=== PATIENT | female | born 1975 | race Caucasian/White ===

== ENCOUNTER → 2017-10-03 10:48 | Outpatient (CLI) | payer MEDICAID, SELFPAY ==
--- NOTE | 2017-10-03 10:50 | MM_ITS ---
MM Dig screening mamm BI w/CAD CAD Screening ORDERING PHYSICIAN : CYDNEY Mcknight PATIENT AGE: 41 years GENDER: Female INDICATION: No hormones no new complaints noncontributory family history COMPARISON: BASELINE mammogram no previous studies.: TECHNIQUE: Standard CC and MLO images were obtained. Additional axillary cc views both breast R2 CAD reviewed. FINDINGS: [id number] breast density RIGHT BREAST:Area of density labeled A, at the deep right breast Most evident on MLO view dissipates slightly but persists the cc view. Recommend patient return for CC and MLO and 90 views of this area. Ultrasound will likely be of benefit as well but LEFT BREAST: 7 mm ovoid low-density density area deep breast labeled X. At posterior margin today's MLO and cc images deep central left breast. May be a intramammary node but has a tail. & Also there are but no prior films to confirm stability.. Thus would suggest a 90 degrees spot view, and cc spot view to confirm. It will likely persistent thus ultrasound suggested here as well IMPRESSION: ====== Small focal areas of density at the both deep right and left breast on today's baseline study. Lower suspicion indeterminate densities, but would benefit from additional spot views both breast , as well as bilateral breast ultrasound to further evaluate.,. Particularly Since No previous studies for comparison BI-RADS Category: 0 Need Additional Imaging Evaluaiton. RECOMMENDED FOLLOW-UP: IMM - IMMEDIATE FOLLOW-UP RECOMMENDED Spot views and ultrasound both breast (A letter has been sent to the patient regarding results of the study.)
== END ==
PROVIDERS: PCP Physician Assistant; Visit Provider Physician Assistant
DX: Z12.31 Encounter for screening mammogram for malignant neoplasm of breast (principal)
CPT/HCPCS: 77067

== ENCOUNTER → 2017-10-25 12:46 | Outpatient (CLI) | payer MEDICAID, SELFPAY ==
--- NOTE | 2017-10-25 12:48 | MM_ITS ---
MM Dig mamm BI DX w/CAD, US breast RT complete, US breast LT complete COMPARISON: 10/03/2017 INDICATION: Follow-up abnormal mammogram ORDERING PHYSICIAN: CYDNEY Mcknight PATIENT AGE: 41 years TECHNIQUE: Problem-solving views are performed of both breasts along with bilateral breast ultrasound FINDINGS: Right mammogram: 4 mm nodular opacity in the lateral aspect of the right breast. Areas of asymmetry in the outer aspect of right breast and inferior aspect the right breast appears to compress out. No malignant appearing mass or malignant appearing microcalcification. Right breast ultrasound: 4 mm hypoechoic nodule at 9:00. 7 mm hypoechoic nodule at 10:00 oval in nature with through transmission of sound. There is ductal ectasia. Left breast: There is a persistent 6 mm nodular opacity in the deep outer and inferior aspect of the left breast. This is fairly well-circumscribed and difficult to image due to its deep location. Possibly related to a small lymph node. The asymmetry in the central left breast appear to compress out. Left breast ultrasound: At 1:00 there is a 5 x 2 mm area of isoechogenicity. There is ductal ectasia small nodes in the axilla. Second look ultrasound was performed showing a complex cystic area at 12:00 in the retroareolar region measuring 10 x 6 mm containing some septations. This is not readily apparent on mammography. IMPRESSION: Probably benign findings. No convincing evidence of malignancy in either breast. 6 mm nodular opacity in the outer left breast not readily visible by ultrasound but has probably benign mammographic appearance. Complex 1 cm cystic lesion in the retroareolar region on the left probably due to complex cyst. 7 and 4 mm hypoechoic nodule right breast probably related to cyst. BI-RADS Category: 3 Benign Finding Short Term Follow-up RECOMMENDED FOLLOW-UP: 6M - 6 MONTH FOLLOW-UP Bilateral 6 month mammographic and sonographic follow-up to confirm stability. (A letter has been sent to the patient regarding results of the study.)
== END ==
PROVIDERS: PCP Physician Assistant; Visit Provider Physician Assistant
DX: R92.8 Other abnormal and inconclusive findings on diagnostic imaging of breast (principal)
CPT/HCPCS: 76641; 77066

== ENCOUNTER → 2018-05-21 12:47 | Outpatient (CLI) | payer MEDICAID, SELFPAY ==
--- NOTE | 2018-05-21 12:49 | US_ITS ---
MM Dig mamm BI DX w/CAD, US breast RT complete US breast LT complete INDICATION: Follow-up abnormal mammogram ORDERING PHYSICIAN: CYDNEY Mcknight PATIENT AGE: 42 years COMPARISON: 10/03/2017, 10/25/2017 TECHNIQUE: Standard images performed along with spot compression views and bilateral breast ultrasound FINDINGS: Right breast: Scattered areas of asymmetric density are once again noted as before. No malignant appearing mass or malignant appearing microcalcifications evident. Asymmetric density in the inferior aspect of the right breast appear to compress out as before. Asymmetric density noted in the medial aspect of the right breast and lateral aspect of the right breast also appears to compress out. Right breast ultrasound: Hyperechoic area at 12:00 and may be due to a small lipoma 4 mm cyst at 10:00, 5 mm complex cyst at 10:00, 3 mm hypoechoic nodule at 9:00, ductal ectasia in the retroareolar region. Small nodes in the axilla. Left breast: Asymmetric density in the deep aspect of the left breast inferiorly once again noted unchanged to somewhat less apparent. This area appears to compress out on spot compression view on the cc view and MLO. Left breast ultrasound: There is a complex cyst at 1:00 at 8 x 4 mm unchanged. 4 mm cyst at 9:00, there is small cluster of cysts are present at 11:00 not previously recognized. Ductal ectasia in the retroareolar region. IMPRESSION: Probably benign findings, no evidence of malignancy bilateral complex cysts with a new complex cyst at 11:00 region of the left breast. Recommend continued 6 month follow-up to confirm one-year stability BI-RADS Category: 3 Probably Benign Finding Short Term Follow-up RECOMMENDED FOLLOW-UP: 6M - 6 MONTH FOLLOW-UP (A letter has been sent to the patient regarding results of the study.)
== END ==
PROVIDERS: PCP Physician Assistant; Visit Provider Physician Assistant
DX: R92.8 Other abnormal and inconclusive findings on diagnostic imaging of breast (principal)
CPT/HCPCS: 76641; 77066

== ENCOUNTER 2018-12-22 06:51 | Observation (INO) ==
[2018-12-22 07:04] LABS: Basophils % 0.4 % (0.1-2.0); Eosinophils # 0.4 K/mm3 (0.0-0.4); Eosinophils % 4.2 % (0.1-12.0); Hematocrit 39.7 % (37.0-47.0); Hemoglobin 13.3 g/dL (12.2-16.2); Lymphocytes # 2.8 K/mm3 (0.7-4.5); Lymphocytes % 33.5 % (10-50); Mean Corpuscular HGB Conc 33.5 g/dL (31.8-35.4); Mean Corpuscular Hemoglobin 29.9 pg (27.0-31.2); Monocytes # 0.7 K/mm3 (0.1-1.0); Monocytes % 8.4 % (1.7-9.3); Neutrophils # 4.5 K/mm3 (1.8-7.8); Neutrophils % 53.5 % (37.0-80.0); Platelet Count 318 K/mm3 (142-424); Red Blood Count 4.46 M/mm3 (4.20-5.40); Red Cell Distribution Width 13.7 % (11.5-17.5); White Blood Count 8.5 K/mm3 (4.8-10.8)
[2018-12-22 07:21] LABS: Microscopic, Urine URINE MICROSCOPIC (MICROSCOPIC)
[2018-12-22 07:22] LABS: Appearance,Urine CLEAR (Clear); Blood, Urine 1+ (Negative); Color,Urine YELLOW (Yellow); Glucose,Urine (UA) Negative (Negative); Ketones,Urine TRACE (Negative); Leukocyte Esterase,Urine Negative (Negative); PH,Urine 5.5 (5.0-8.5); Protein,Urine TRACE (Negative); Specific Gravity, Urine >= 1.030 (1.005-1.030); Urobilinogen,Urine 0.2 EU/dl (0.2)
--- NOTE | 2018-12-22 07:23 | Emergency Department Note ---
ED Disposition Clinical Impression: Chest pain Qualifiers: Chest pain type: precordial pain Qualified Code(s): R07.2 - Precordial pain Disposition: Admitted as Observation Condition on Discharge: Good Referrals: Provider,Referral, [Referring] - - Critical Care Critical Care Time: No Attestation: On , the high probability of a clinically significant, sudden or life threatening deterioration of the following system(s) required my full and direct attention, intervention and personal management. The time I documented below is in addition to time spent performing reported procedures but includes the following listed in this critical care notation. Medical Decision Making - Medical Records Medical records reviewed: Yes: I reviewed the patient's medical records. - [place] Inquiry Pt receiving controlled substance: No Vital Signs: 12/22/18 07:04 12/22/18 07:28 12/22/18 07:39 Temperature 98.3 F Temperature Source Oral Pulse Rate [Right] 76 64 58 L Respiratory Rate 16 Blood Pressure [Right Arm] 118/82 126/64 93/66 L Blood Pressure Mean [Right Arm] 94 84 75 Blood Pressure Source [Right Arm] Automatic Cuff Automatic Cuff Automatic Cuff Blood Pressure Position [Right Arm] Sitting Sitting Sitting 02 Sat by Pulse Oximetry 978 H 98 97 Oxygen Delivery Method Room Air Room Air Room Air - Lab Data Lab results reviewed: Yes: I reviewed the patient's lab results. Lab Results 12/22/18 06:50: WBC 8.5, RBC 4.46, Hgb 13.3, Hct 39.7, MCV 89.0, MCH 29.9, MCHC 33.5, RDW 13.7, Plt Count 318, MPV 8.0, Neut % (Auto) 53.5, Lymph % (Auto) 33.5, [place] % (Auto) 8.4, Eos % (Auto) 4.2, Baso % (Auto) 0.4, Neut # (Auto) 4.5, Lymph # (Auto) 2.8, [place] # (Auto) 0.7, Eos # (Auto) 0.4, Baso # (Auto) 0.0 12/22/18 06:50: Sodium 143, Potassium 3.7, Chloride 107, Carbon Dioxide 25, Anion Gap 14.7, BUN 15, Creatinine 0.98, Estimated Creat Clear 69, Estimated GFR 62, Est GFR ( Amer) 75, Glucose 107 H, Calcium 9.2, Troponin I < 0.02 12/22/18 07:10: Urine Color Yellow, Urine Appearance Clear, Urine pH 5.5, Ur Specific [place] >= 1.030, Urine Protein Trace, Urine Glucose (UA) Negative, Urine Ketones Trace, Urine Blood 1+, Urine Nitrate Negative, Urine Bilirubin 1+ A, Urine Urobilinogen 0.2, Ur Leukocyte Esterase Negative Result diagrams: 12/22/18 06:50 12/22/18 06:50 Orders (Tests/Meds): ED MEDICATIONS Generic Name Dose Route Start Last Admin Trade Name Freq PRN Reason Stop Dose Admin Sodium Chloride 1,000 mls @ 999 mls/hr 12/22/18 08:00 12/22/18 07:58 Sod Chlor 0.9% 1000ml Bag IV 12/22/18 09:00 999 mls/hr .[id number] MANJINDER Administration Discontinued Medications Generic Name Dose Route Start Last Admin Trade Name Freq PRN Reason Stop Dose Admin Aspirin 324 mg 12/22/18 06:55 12/22/18 06:58 Aspirin 81mg Chewable Tablet PO 12/22/18 06:56 324 mg ONCE ONE Administration Morphine Sulfate 2 mg 12/22/18 07:42 12/22/18 07:43 Morphine 2mg/Ml Syringe IV 12/22/18 07:43 2 mg ONCE ONE Administration Nitroglycerin 0.4 mg 12/22/18 07:12 12/22/18 07:13 Nitrostat 0.4mg Sl Tablet SL 12/22/18 07:13 0.4 mg ONCE ONE Administration Nitroglycerin 1 gm 12/22/18 07:20 12/22/18 07:29 Nitroglycerin 1 Inch Oint Udp TD 12/22/18 07:21 1 gm ONCE ONE Administration Ondansetron HCl 4 mg 12/22/18 07:56 12/22/18 07:58 Zofran 4mg/2ml Vial IV 12/22/18 07:57 4 mg ONCE ONE Administration ORDERS Category Date Time Status Chest XR 2 view (NOT portable) [XR chest 2V] Stat Exams 12/22/18 06:54 Taken Lipid Panel Stat Lab 12/22/18 07:10 Received Urinalysis and Microscopic Stat Lab 12/22/18 07:10 Results Urine , HCG Qual. Stat Lab 12/22/18 07:10 Received - Radiology Data #1 Image(s): Chest Image Reviewed: Yes I reviewed the patient's radiology image Preliminary Findings: Normal/NAD - ECG Data Tracing #1 Normal Sinus Rhythm: Yes Ischemic changes: non-specific ST-T wave changes Chest Pain HPI - General Chief Complaint: Chest Pain Stated Complaint: chest pain Time Seen by Provider: 12/22/18 07:10 Mode of Arrival: Ambulatory Source of Information: Patient, Medical Record Limitations: No Limitations Description of Symptoms (Recalled from ER Triage Doc. by RN): Pt states she woke up with chest pain radiating to left arm - History of Present Illness HPI narrative: pt with episode of chest pain which awoke pt this am with rad to lt upper ext - described as sharp MD complaint: chest pain indicative of cardiac Onset (ago): hour(s) Duration: constant Activity at onset: awoke with symptoms Pain location: left chest Severity: moderate Quality: sharp Pain radiation: LUE Risk Factors for CAD: Family Hx of CAD Treatments prior to or on arrival for Cardiac Chest Pain: none - MIRA Score for Non-Stemi Age of Patient: 40-49 years old Heart Rate: 70-89 bpm Systolic Blood Pressure: 100-119 mmHg Serum Creatinine: 0.80-1.19 mg/dl CHF [place] Class: I-No CHF Other Risk Factors: None Non-Stemi Risk Score: 84 - Related Data On Oral Contraceptives: No Home Medications Medication Instructions Recorded Confirmed Fluoxetine HCl [Prozac] 40 mg PO DAILY 12/22/18 12/22/18 hydrOXYzine pamoate [Vistaril 25mg 25 mg PO BID 12/22/18 12/22/18 capsule] Allergies Allergy/AdvReac Type Severity Reaction Status Date / Time From CELEXA Allergy Unknown Uncoded 09/19/17 10:59 From Penicillin V Potassium Allergy Unknown Uncoded 09/19/17 10:59 Penicillin Allergy Unknown Uncoded 09/19/17 10:59 [facility] History - Hepatitis A Screen Drug use history?: No High risk sexual behaviors?: No History of sexually transmitted infection?: No Currently employed?: No Childcare worker?: No Do you have indoor plumbing?: Yes Do you have electricity?: Yes Attestation statement:: This patient has been screened for Hepatitis A risk factors. I have reviewed the patient's past medical history: Yes Medical History: Reports:: Anxiety, Depression Denies:: Diabetes Mellitus Type 1, Diabetes Mellitus Type 2 Other Surgeries: Yes: Amputation: No Fractures: No - Social History Smoking Status: Never smoker Alcohol Intake: never Substance Use Type: denies use Occupational Status: disabled - Psychiatric History Expresses thoughts of harming self/others: None Suicide Plan Description: No Plan Pschychiatric History:: Reports:: Anxiety, Depression Family Hx:: No significant family history ROS Obtained: Yes All systems reviewed & no additional complaints - Constitutional Constitutional: Denies fever(s) - Eyes Eyes: Denies change in vision - ENT Ears, Nose, Mouth, and Throat: Denies sore throat - Cardiovascular Cardiovascular: Reports chest pain - Respiratory Respiratory: No cough - Gastrointestinal Gastrointestingal: Denies: abdominal pain - Genitourinary Female Genitourinary: Denies hematuria - Musculoskeletal Musculoskeletal: Denies joint pain - Integumentary/Breasts Skin/Breast: Denies rash - Neurologic Neurologic: Denies seizure-like activity Physical Exam - General General appearance: alert - Head Head exam: normocephalic - Eye Eye exam: Present: PERRL, EOMI. Absent: scleral icterus - ENT ENT exam: Present: normal oropharynx - Neck Neck exam: Present: trachea midline - Respiratory Respiratory exam: Present: normal lung sounds bilaterally. Absent: respiratory distress - Cardiovascular Cardiovascular exam: Present: regular rate, systolic murmur. Absent: rubs, gallop - Abdominal Exam Abdominal exam: Present: soft - Extremities Exam Extremities exam: Absent: calf tenderness - Neurological Exam Neurological exam: Present: alert, oriented X3, CN II-XII intact - Psychiatric Psychiatric exam: Present: normal affect - Skin Skin exam: Absent: rash
[2018-12-22 07:25] LABS: Anion Gap 14.7 mEq/L (5-15); Blood Urea Nitrogen 15 mg/dL (7-18); Calcium 9.2 mg/dL (8.5-10.1); Carbon Dioxide 25 mmol/L (21.0-32.0); Chloride 107 mmol/L (98-107); Glucose 107 mg/dL (74-106); Potassium 3.7 mmoL/L (3.5-5.1); Sodium 143 mmol/L (136-145)
[2018-12-22 07:48] LABS: Bilirubin,Urine 1+ (Negative)
[2018-12-22 08:10] LABS: Bacteria,Urine 1+ /lpf
--- NOTE | 2018-12-22 09:21 | History & Physical Report ---
*Admission Date: 12/22/18 *Chief complaint: chest pain *History of present illness: 43 yr old female presents to ed with c/o of chest pain with pain radiating down left arm. Pt states she was awaken with a stabbing pain in the chest and pain down left arm. Pt states on arrival to ed pain was 10 she received morphine,asa and nitro and pain down to 7. Now pain 2 with a nitro patch on. Pt reports no smoking,or hx of cardiac issues. Pt admitted for cardiac work up and consult. [facility] History I have reviewed the patient's past medical history: Yes Medical History: Reports:: Anxiety, Depression Denies:: Diabetes Mellitus Type 1, Diabetes Mellitus Type 2 *Have you ever received a pneumonia vaccine?: No *Have you received a flu vaccine this season?: No Other Surgeries: Yes: Amputation: No Fractures: No - *Social History Smoking Status: Never smoker Alcohol Intake: never Substance Use Type: denies use *Occupational Status:: disabled *Travel in the last 8 weeks: None - Psychiatric History Expresses thoughts of harming self/others: None Suicide Plan Description: No Plan Pschychiatric History:: Reports:: Anxiety, Depression Family Hx:: No significant family history Review of Systems - Constitutional Denies fever(s), Denies weight gain - Eyes Denies change in vision - ENT Denies change in voice, Denies nose pain - *Cardiovascular Reports chest pain, Reports chest pain at rest, Reports radiating jaw, neck or arm pain - *Respiratory Denies cough - *Gastrointestinal Denies change in bowel habits - *Genitourinary Denies urinary incontinence - *Musculoskeletal Denies decreased muscle mass - Integumentary/Breasts Denies change in hair, Denies rash - *Neurologic Denies abnormal movements, Denies seizure-like activity - Psychiatric Denies lack of enjoyment - Endocrine Denies flushing - Hematologic/Lymphatic Denies enlarged lymph nodes - Allergic/Immunologic Denies tongue swelling Meds Home Medications Medication Instructions Recorded Confirmed Type Fluoxetine HCl [Prozac] 40 mg PO DAILY 12/22/18 12/22/18 History hydrOXYzine pamoate [Vistaril 25mg 25 mg PO BID 12/22/18 12/22/18 History capsule] Allergies Allergy/AdvReac Type Severity Reaction Status Date / Time From CELEXA Allergy Unknown Uncoded 09/19/17 10:59 From Penicillin V Potassium Allergy Unknown Uncoded 09/19/17 10:59 Penicillin Allergy Unknown Uncoded 09/19/17 10:59 Exam Vital signs and Labs for Last 24 Hours: Temp Pulse Resp BP Pulse Ox 98.2 F 94 H 17 104/68 L 96 12/22/18 09:00 12/22/18 09:00 12/22/18 09:00 12/22/18 09:00 12/22/18 09:00 Laboratory Results - last 24 hr 12/22/18 06:50: WBC 8.5, RBC 4.46, Hgb 13.3, Hct 39.7, MCV 89.0, MCH 29.9, MCHC 33.5, RDW 13.7, Plt Count 318, MPV 8.0, Neut % (Auto) 53.5, Lymph % (Auto) 33.5, [place] % (Auto) 8.4, Eos % (Auto) 4.2, Baso % (Auto) 0.4, Neut # (Auto) 4.5, Lymph # (Auto) 2.8, [place] # (Auto) 0.7, Eos # (Auto) 0.4, Baso # (Auto) 0.0 12/22/18 06:50: Sodium 143, Potassium 3.7, Chloride 107, Carbon Dioxide 25, Anion Gap 14.7, BUN 15, Creatinine 0.98, Estimated Creat Clear 69, Estimated GFR 62, Est GFR ( Amer) 75, Glucose 107 H, Calcium 9.2, Troponin I < 0.02 12/22/18 07:10: Urine Color Yellow, Urine Appearance Clear, Urine pH 5.5, Ur Specific [place] >= 1.030, Urine Protein Trace, Urine Glucose (UA) Negative, Urine Ketones Trace, Urine Blood 1+, Urine Nitrate Negative, Urine Bilirubin 1+ A, Urine Urobilinogen 0.2, Ur Leukocyte Esterase Negative, Urine WBC 5-10, Ur Squamous Epith Cells 10-20, Urine Bacteria 1+ 12/22/18 07:10: Urine HCG, Qual Negative 12/22/18 07:10: Triglycerides 127, Cholesterol 215 H, LDL Cholesterol 147 H, VLDL Cholesterol 25, HDL Cholesterol 43, Cholesterol/HDL Ratio 5.0 H I & O for Last 24 hours: Intake & Output 12/19/18 12/20/18 12/21/1825/19 11:59 11:59 11:59 11:59 Intake Total 1000 / 1000 Balance 1000 / 1000 Weight 130 lb - Constitutional no acute distress - *Routine HEENT Exam Head: Present: normocephalic Eye: Present: PERRL ENT: Present: mucous membranes moist - *Routine Neck Exam Present: supple. Absent: lymphadenopathy - *Routine Respiratory Exam Present: CTA bilaterally - *Routine Cardiovascular Exam Present: RRR - *Routine Abdominal Exam Present: soft, normoactive bowel sounds. Absent: tenderness - *Routine Extremities Exam Absent: cyanosis, clubbing, edema - *Routine Skin Exam Present: warm. Absent: rash - *Routine Neurological Exam Present: alert, oriented X3 - Routine Psychiatric Exam Present: normal affect Assessment and Plan - Assessment and plan all Dx Assessment and Plan for all problems:: ashley rounded earlier, all orders per ashley consult mc
--- NOTE | 2018-12-22 11:27 | Pharmacy Consult Notes ---
[facility] Pharmacy VTE Monitoring - Patient Demographics Admission date: 12/22/18 Report Date: 12/22/18 Time: 11:27 Allergies/Adverse Reactions: Patient Allergies pineapple Allergy (Verified 12/22/18 10:07) Swelling of Lip/Tongue/Throat From CELEXA Allergy (Unknown, Uncoded 09/19/17 10:59) From Penicillin V Potassium Allergy (Unknown, Uncoded 09/19/17 10:59) Penicillin Allergy (Unknown, Uncoded 09/19/17 10:59) Height: 1.57 m Weight: 58.967 kg Patient Problems: Current Active Problems (Updated 12/22/18 @ 08:02 by Damian Ogden MD) Chest pain (Acute) - VTE Risk Labs: VTE Related Lab Results Hgb 13.3 g/dL (12.2-16.2) 12/22/18 06:50 Hct 39.7 % (37.0-47.0) 12/22/18 06:50 Plt Count 318 K/mm3 (142-424) 12/22/18 06:50 BUN 15 mg/dL (7-18) 12/22/18 06:50 Creatinine 0.98 mg/dL (0.55-1.02) 12/22/18 06:50 Estimated Creat Clear 69 mL/min (50-200) 12/22/18 06:50 Was VTE Risk Assessment Performed: Yes VTE Risk Level: Very Low Risk - Prophylaxis Location of Applied Device: Not Applicable - VTE Diagnosis Confirmed Comment: SILVANA DORMAN ORDER PLACED
[2018-12-23 07:27] LABS: Eosinophils # 0.3 K/mm3 (0.0-0.4); Lymphocytes # 2.2 K/mm3 (0.7-4.5)
[2018-12-23 07:47] LABS: Basophils % 0.2 % (0.1-2.0); Eosinophils % 4.1 % (0.1-12.0); Hematocrit 35.3 % (37.0-47.0); Lymphocytes % 33.3 % (10-50); Mean Corpuscular Hemoglobin 29.5 pg (27.0-31.2); Mean Corpuscular Volume 89.5 fl (81-99); Mean Platelet Volume 8.3 fl (7.4-10.4); Monocytes # 0.5 K/mm3 (0.1-1.0); Monocytes % 7.7 % (1.7-9.3); Neutrophils # 3.6 K/mm3 (1.8-7.8); Neutrophils % 54.6 % (37.0-80.0); Platelet Count 254 K/mm3 (142-424); Red Blood Count 3.95 M/mm3 (4.20-5.40); Red Cell Distribution Width 13.5 % (11.5-17.5); White Blood Count 6.5 K/mm3 (4.8-10.8)
[2018-12-23 07:50] LABS: Hemoglobin 11.7 g/dL (12.2-16.2)
[2018-12-23 07:51] LABS: Potassium 3.6 mmoL/L (3.5-5.1)
[2018-12-23 07:52] LABS: Anion Gap 12.6 mEq/L (5-15); Calcium 8.3 mg/dL (8.5-10.1)
--- NOTE | 2018-12-23 08:22 | Discharge Summary ---
General - General Admission date:: 12/22/18 Discharge date: 12/23/18 HPI HPI: 43 yr old female presents to ed with c/o of chest pain with pain radiating down left arm. Pt states she was awaken with a stabbing pain in the chest and pain down left arm. Pt states on arrival to ed pain was 10 she received morphine,asa and nitro and pain down to 7. Now pain 2 with a nitro patch on. Pt reports no smoking,or hx of cardiac issues. Pt admitted for cardiac work up and consult. Hospital Course Hospital Course: pt had serial card enz were stable and with ct for pe was done sec to chest pain and dyspnea and wells score elevated - ct showed no pul emboli but INDINGS Pulmonary arteries well visualized and appear normal. . No evidence of pulmonary embolism Aorta. Normal caliber normal appearance. The heart is normal size no pericardial effusion. This study does not provide adequate coronary evaluation but I would note that we do visualize prominent generous volume left main coronary artery along with generous caliber LAD and first diagonal circumflex partially imaged.. Appears to be Left dominant heart. The much Smaller right coronary less evident, less well visualized. . Right kenny upper normal prominence.. Small nodes seen here which I believe are fairly stable granulomatous nodes nodes at right kenny. There is subtle partial calcification evident in these right hilar nodes nodes better seen on February 2013 CT chest. . Left kenny unremarkable. No significant mediastinal adenopathy. Distal esophagus with upper normal wall thickening leading to the GE junction. There history of GE reflux? Lung delgado. No significant findings. Stable 1 cm calcified granuloma at the periphery of the right upper lobe again noted. No suspicious lung nodules. Only scant chronic lung changes otherwise. No pleural effusion. No pneumothorax. No chest wall lesion. Ribs unremarkable. T-spine stable again noting the slight wedging at T11. Likely congenital. There is some mild disc space narrowing with scant 2 mm retrolisthesis of T12 on L1 noted Uppermost abdomen: Cholelithiasis. 6.5 mm stone towards neck of gallbladder with 1 cm stone containing central calcification mid gallbladder. A dense collection of stones or a single prominent stone measuring up to nearly 15 mm length is seen at the fundus of the gallbladder. pt was then given pain meds and pepcid and reglan and by this am was much improved -pt will be d/c for close op follow up for gb u/s and prob egd and stress testing -and lipid treatment and review of risk factors Objective Vital signs: Temp Pulse Resp BP Pulse Ox 98.2 F 70 18 104/54 L 97 12/23/18 07:54 12/23/18 08:00 12/23/18 07:54 12/23/18 07:54 12/23/18 07:54 no acute distress - *Routine HEENT Exam Head: Present: normocephalic Eye: Present: EOMI, PERRL. Absent: conjunctival icterus ENT: Present: mucous membranes moist - *Routine Neck Exam Present: supple. Absent: JVD - *Routine Respiratory Exam Present: CTA bilaterally - *Routine Cardiovascular Exam Present: RRR, murmur - *Routine Abdominal Exam Present: soft. Absent: tenderness Comments: some tenderness rt upper abd with mckeon sign - *Routine Extremities Exam Present: full ROM. Absent: calf tenderness - Routine Back/Spine/Pelvis Exam Back/Spine: Absent: CVA tenderness - *Routine Skin Exam Present: intact - *Routine Neurological Exam Present: alert, oriented X3, CN II-XII intact - Routine Psychiatric Exam Present: normal affect Results Labs on day of discharge: Labs from last 24 hours 12/23/18 12/23/18 12/22/18 06:40 06:40 14:23 WBC 6.5 RBC 3.95 L Hgb 11.7 L D Hct 35.3 L MCV 89.5 MCH 29.5 MCHC 33.0 RDW 13.5 Plt Count 254 MPV 8.3 Neut % (Auto) 54.6 Lymph % (Auto) 33.3 [place] % (Auto) 7.7 Eos % (Auto) 4.1 Baso % (Auto) 0.2 Neut # (Auto) 3.6 Lymph # (Auto) 2.2 [place] # (Auto) 0.5 Eos # (Auto) 0.3 Baso # (Auto) 0.0 Sodium 144 Potassium 3.6 Chloride 111 H Carbon Dioxide 24 Anion Gap 12.6 BUN 13 Creatinine 0.82 Estimated Creat Clear 86 Estimated GFR 76 Est GFR ( Amer) 92 D Glucose 98 Calcium 8.3 L Magnesium 2.0 Troponin I < 0.02 Urine HCG, Qual 12/22/18 12/22/18 11:10 07:10 WBC RBC Hgb Hct MCV MCH MCHC RDW Plt Count MPV Neut % (Auto) Lymph % (Auto) [place] % (Auto) Eos % (Auto) Baso % (Auto) Neut # (Auto) Lymph # (Auto) [place] # (Auto) Eos # (Auto) Baso # (Auto) Sodium Potassium Chloride Carbon Dioxide Anion Gap BUN Creatinine Estimated Creat Clear Estimated GFR Est GFR ( Amer) Glucose Calcium Magnesium Troponin I < 0.02 Urine HCG, Qual Negative DS: Diagnosis - Discharge Diagnosis (1) Chest pain Status: Acute (2) GERD (gastroesophageal reflux disease) Status: Acute (3) Pulmonary granuloma Status: Acute (4) Cholelithiasis Status: Acute (5) Anemia Status: Acute (6) Hyperlipidemia Status: Acute Discharge Plan - Patient Discharge Instructions ACTIVITY: Continue current activity DIET: continue same diet Patient Instructions: DI for Chest Pain, DI for Gastroesophageal Reflux Disease (GERD), DI for Gallstones - Follow up Plan Disposition: Home, Self-Prison Medications: Home Medications Medication Instructions Recorded Confirmed Type Fluoxetine HCl [Prozac] 40 mg PO DAILY 12/22/18 12/22/18 History hydrOXYzine pamoate [Vistaril 25mg 25 mg PO BID 12/22/18 12/22/18 History capsule] Atorvastatin Calcium [Lipitor 10mg 10 mg PO DAILY #30 tab 12/23/18 Rx Tablet] Pantoprazole Sodium [Protonix 40mg 40 mg PO DAILY 30 Days #30 tab 12/23/18 Rx tablet] Prescriptions/Medication Reconciliation: New Pantoprazole Sodium [Protonix 40mg tablet] 40 mg PO DAILY 30 Days #30 tab Atorvastatin Calcium [Lipitor 10mg Tablet] 10 mg PO DAILY #30 tab Continued hydrOXYzine pamoate [Vistaril 25mg capsule] 25 mg PO BID Fluoxetine HCl [Prozac] 40 mg PO DAILY
== END 2018-12-23 09:25 | disposition home or self-care (01) ==
LOC: ER 06:51 → 2ND 06:51
PROVIDERS: ADMIT Emergency Medicine; ATTEND Emergency Medicine
CPT/HCPCS: 36415; 71020; 71046; 71275; 80048; 80061; 81001; 81025; 83735; 84484; 85025; 93005; 96365; 96375; 99285; G0378; J2405; Q9967

== ENCOUNTER → 2019-01-02 07:37 | Outpatient (CLI) | payer MEDICAID, SELFPAY ==
--- NOTE | 2019-01-02 07:39 | US_ITS ---
US abdomen limited History:Chest pain, gallstones Ordering Physician:CYDNEY Rodgers Patient Age: 43 years Comparison:None Findings: Pancreas:Unremarkable. No obvious mass or abnormal fluid collection. No ductal dilatation Liver:Unremarkable. No obvious mass or abnormal fluid collection. No ductal dilatation. There is a small area of increased echogenicity within the mid aspect of the right hepatic lobe. This measures approximately 1.9 cm Right Kidney:Unremarkable. Normal size and echogenicity. No hydronephrosis Gallbladder:Multiple gallstones are present. No gallbladder wall thickening, pericholecystic fluid, or biliary dilatation is evident. Impression: 1. Cholelithiasis. 2. 1.9 cm hyperechoic focus in the right hepatic lobe. This is not clearly delineated on the previous CT scan possibly due to area of focal fatty infiltration. 3 month follow-up suggested
== END ==
PROVIDERS: PCP Physician Assistant; Visit Provider Physician Assistant
DX: K80.20 Calculus of gallbladder without cholecystitis without obstruction (principal)
CPT/HCPCS: 76705

== ENCOUNTER → 2019-01-22 10:26 | Outpatient (CLI) | payer MEDICAID, SELFPAY ==
--- NOTE | 2019-01-22 10:27 | FL_ITS ---
FL upper GI w air HISTORY: ITS.REASON: dysphagia ORDERING PHYSICIAN: Bay Kim MD PATIENT AGE: 43 years Comparison: None FINDINGS: Esophagus is normal. However there is a small amount of the sick barium which refluxes from the stomach into the lower esophageal area without esophageal stricture or ulceration. Stomach shows no ulcerations or filling defects. Peristalsis appears normal. Duodenal bulb and sweep are normal. FLUOROSCOPY TIME : 1.13 minutes.. IMPRESSION: Mild gastroesophageal reflux without definite hiatal hernia. Exam is otherwise unremarkable.
== END ==
PROVIDERS: PCP Physician Assistant; Visit Provider Surgery
DX: R13.10 Dysphagia, unspecified (principal)
CPT/HCPCS: 74247

== ENCOUNTER → 2019-02-06 07:48 | Outpatient (CLI) | payer MEDICAID, SELFPAY ==
--- NOTE | 2019-02-06 07:50 | CA_ITS ---
PROCEDURE: 2-D M-mode and color Doppler study INDICATIONS FOR THE TEST: Chest pain+ COPD Heart Murmur Tobacco Smokingex Palpitations Fatigue Syncope Edema+ Hypertension Diabetes Mellitus Rheumatic Fever SOB+SILVERIO Obesity Hyperlipidemia Family History HD Additional History ABN EKG,PRE-OP CLEARANCE PATIENT INFORMATION HEIGHT: 62 WEIGHT:132 GENDER: Female B/P:118/71 2-D/M-MODE INTERPRETATION: 2-D MEASUREMENTS OBSERVED VALUES IN CMS Right Ventricular Dimension (RVDd) 1.8 Interventricular Septum (Thickness)(IVsd) 1.1 Left Ventricular Internal Dimensions(LVIDd) 4.9 Left Ventricular Posterior Wall (Thickness)(LVPWd) 1.0 Aortic Root 2.3 Aortic Cusp Separation 1.9 Left Atrial Dimensions (LAD) 3.6 2D 1. Left atrium is normal size, left ventricle is normal size, there is no concentric left ventricular hypertrophy, visually estimated ejection fraction 55% with no regional wall motion abnormality. 2. The right atrium and right ventricle are normal size and contractility. 3. The aortic, mitral and tricuspid valvular grossly normal. 4. The pulmonic valve is poorly visualized. 5. No significant pericardial effusion noted. DOPPLER INTERROGATION: Doppler interrogation of the aortic, mitral and tricuspid valvular presence of mild mitral and tricuspid regurgitation, tricuspid regurgitation jet velocity is inadequate for calculation of the right ventricular systolic pressure, diastolic parameters are within normal range. CONCLUSION: 1. Normal left ventricular size, visually estimated ejection fraction 5% with no regional wall motion abnormality, diastolic parameters are within normal range. 2. Mild mitral and tricuspid regurgitation 3. No significant pericardial effusion noted.
== END ==
PROVIDERS: PCP Emergency Medicine; Visit Provider Internal Medicine
DX: Z01.810 Encounter for preprocedural cardiovascular examination (principal); R06.00 Dyspnea, unspecified; R07.2 Precordial pain; E78.5 Hyperlipidemia, unspecified; Z87.891 Personal history of nicotine dependence
CPT/HCPCS: 93017; 93306

== ENCOUNTER → 2019-05-01 08:42 | Outpatient (CLI) | payer MEDICAID, SELFPAY ==
--- NOTE | 2019-05-01 08:43 | CT_ITS ---
PROCEDURE: CT ABDOMEN W CON CLINICAL HISTORY: 3 month f/u right hepatic lobe liver lesion [facility] US abdomen limited from 01/02/2019 TECHNIQUE: 75 cc of intravenous contrast. This is a dynamic study with early, intermediate and delayed contrast images through the liver for hemangioma protocol. Axial images obtained with sagittal and coronal reformats. All CT scans at the facility use one or more dose reduction, viz: automated exposure control, ma/kV adjustment per patient size (including targeted exams where dose is matched to indication, i.e. head), or iterative reconstruction technique. FINDINGS: There is a 1.8 centimeter hypodense lesion in the posterior inferior right hepatic lobe. This shows peripheral nodular incomplete enhancement. Delayed images show partial filling of the lesion with contrast. There are no other suspicious liver lesions. There are gallstones without pericholecystic fluid or biliary dilatation. Pancreas, adrenal glands, spleen and kidneys are normal. The visualized GI track is unremarkable and the appendix is normal. There is no free air or ascites. There is no acute osseous process. IMPRESSION: Uncomplicated cholelithiasis. Liver lesion is a benign cavernous hemangioma. No further follow-up is necessary. Dictated by: Chandler Whiteside 05/01/2019 12:25 Electronically signed by Chandler Whiteside in [place] 05/01/2019 12:25
== END ==
PROVIDERS: PCP Physician Assistant; Visit Provider Physician Assistant
DX: K76.9 Liver disease, unspecified (principal)
CPT/HCPCS: 74160; Q9967

== ENCOUNTER → 2020-05-21 11:08 | Outpatient (CLI) | payer MEDICAID, SELFPAY ==
--- NOTE | 2020-05-21 | CA_ITS ---
APPROVED REPORT Exam: Exercise Treadmill Technologist: JODI DILLON, Ht: 5 ft 2 in Wt: 125 lbs BSA: 1.57 m2 HR: 62 bpm BP: 114/68 mmHg Rhythm: NSR Indications: SOA, CP Medical History Medical History: Hyperlipidemia Medications: Furosemide (LASIX),,,,, Pantoprazole,,,,, Atorvastatin,,,,, Fluoxetine,,,,, Hydroxyzine,,,,, SpirOnLACTONE,,,,, Allergies: PINEAPPLE, CELEXA PCN Stress Test Details Test: Layla HR Resting HR: 85 bpm Max Heart Rate (APMHR): 176 bpm Max HR Achieved: 133 bpm Target HR (85% APMHR): 149 bpm % of APMHR: 75 Recovery HR: 81 bpm BP Resting BP: 114.0/68.0 mmHg Max BP: 137.0/74.0 mmHg Recovery BP: 116.0/70.0 mmHg ECG Resting ECG: NSR Clinical Exercise duration: 08:25 min Highest Stage Achieved: Exercise capacity: 10.1 METs Stress ECG Conclusion EXERCISED 8:25 ON LAYLA PROTOCOL. MAX HEART RATE 133 BPM WHICH IS 76% OF PM FOR AGE. MAX BP 137/74, METS 10.1. TEST STOPPED DUE TO SOA AND FATIGUE. NO CP. NO ARRHYTHMIAS/ECTOPY. ALLOWING FOR MOTION ARTIFACT THE ST RESPONSE TO EXERCISE IS WITHIN NORMAL . Nondiagnostic exercise treadmill stress test due to patient did not achieve the target heart rate. Test Summary RECOVERY 06:24 0.0 0.0 69 . 134/ 71 . . REST 05:47 0.0 0.0 85 . 114/ 68 . . Stage 1 01:00 10.0 1.7 100 . . . . Stage 1 02:00 10.0 1.7 106 . . . . Stage 1 03:00 10.0 1.7 113 . . . . Stage 2 01:00 12.0 2.5 115 . 124/ 70 . . Stage 2 02:00 12.0 2.5 119 . 124/ 70 . . Stage 2 03:00 12.0 2.5 122 . 126/ 70 . . Stage 3 01:00 14.0 3.4 127 . . . . Stage 3 02:00 14.0 3.4 128 . . . . Stage 3 02:25 14.0 3.4 132 . . . Stop exercise at 08:25 RECOVERY 01:00 0.0 0.0 85 . . . . RECOVERY 02:00 0.0 0.0 77 . . . . RECOVERY 03:00 0.0 0.0 70 . 137/ 74 . . RECOVERY 04:00 0.0 0.0 75 . 129/ 75 . . RECOVERY 05:00 0.0 0.0 64 . 129/ 75 . . RECOVERY 06:00 0.0 0.0 63 . 134/ 71 . . RECOVERY 06:24 0.0 0.0 69 . 134/ 71 . . Electronically signed by : Yony Goode, 05/21/2020 16:45:03
== END ==
PROVIDERS: PCP Physician Assistant; Visit Provider Urology
DX: R07.9 Chest pain, unspecified (principal); R06.00 Dyspnea, unspecified; I50.33 Acute on chronic diastolic (congestive) heart failure; E78.5 Hyperlipidemia, unspecified
CPT/HCPCS: 93017

== ENCOUNTER 2022-05-17 13:04 | Emergency (ER) | payer MEDICAID, SELFPAY ==
[2022-05-17 13:23] VITALS: BP 136/89; PULSE 84; RESP 16; TEMP 36.8; O2SAT 95; BMI 23.8
--- NOTE | 2022-05-17 13:42 | EXP.UTC ---
Discharge Plan Disposition Patient Disposition: Home, Self-Care Condition: Good Prescriptions Prescriptions: New clindamycin HCl 300 mg capsule 300 mg PO Q8H Qty: 30 0RF chlorhexidine gluconate [Paroex Oral Rinse] 0.12 % mouthwash 15 ml buccal BID 10 Days Qty: 473 0RF No Action atorvastatin 10 mg tablet 10 mg PO DAILY Qty: 90 3RF furosemide 40 mg tablet 40 mg PO DAILY Qty: 90 3RF hydroxyzine pamoate 25 mg capsule 25 mg PO BID Qty: 60 2RF pantoprazole 40 mg tablet,delayed release (DR/EC) 40 mg PO DAILY Qty: 90 0RF spironolactone [Aldactone] 25 mg tablet 25 mg PO DAILY Qty: 90 3RF buspirone 5 mg tablet 5 mg PO BID Qty: 60 2RF venlafaxine [Effexor XR] 75 mg capsule,extended release 24hr 75 mg PO DAILY Qty: 90 0RF Lice Killing 0.33-4 % shampoo 1 applic TOPICAL ONCE Qty: 118 0RF Referrals Follow up/Referrals: Kaur Castillo PA [Primary Care Provider] - See instructions Activity Restrictions/Add. Instructions Additional Instructions/Restrictions: Take tylenol or ibuprofen for pain. Take the medications as directed. Follow up with your regular doctor. Follow up with your dentist. GO TO THE ER FOR ANY WORSENING SYMPTOMS Clinical Impressions Clinical Impression: Gum laceration Instructions Patient Instructions: DI for Minor Laceration Discharge ED Provider: Hector Torres [facility] [place] General Stated complaint: Cut mouth w/ piece of metal from DQ Mode of Arrival: Ambulatory Source of Information: Patient Limitations: No Limitations Time Seen by Provider: 05/17/22 13:42 Description of Symptoms (Recalled from Triage Doc. by RN): Pt states that a piece of metal that appeared to be from a brilo pad was in her fries and cut the top rt side of her gum when she bit into it History of Present Illness Provider Complaint: She states that she was eating at [employer] when she bit into a piece of a brillo pad on one of her spanish fries. She states that she has a cut inside her mouth on her right upper gums from it. She denies any other injury. She denies swallowing any of the metal pieces. Related Data Previous Rx's Medication Instructions Recorded atorvastatin 10 mg tablet 10 mg PO DAILY Cholesterol #90 tabs 01/07/21 buspirone 5 mg tablet 5 mg PO BID #60 tabs 01/07/21 furosemide 40 mg tablet 40 mg PO DAILY #90 tabs 01/07/21 hydroxyzine pamoate 25 mg capsule 25 mg PO BID Anxiety #60 caps 01/07/21 pantoprazole 40 mg tablet,delayed 40 mg PO DAILY GERD #90 tabs 01/07/21 release spironolactone 25 mg tablet 25 mg PO DAILY #90 tabs 01/07/21 (Aldactone) venlafaxine 75 mg capsule,extended 75 mg PO DAILY #90 caps 04/30/21 release 24 hr (Effexor XR) pyrethrins 0.33 %-piperonyl 1 applic topical ONCE #118 mL 05/10/21 butoxide 4 % shampoo (Lice Killing) chlorhexidine gluconate 0.12 % 15 ml buccal BID 10 days #473 mL 05/17/22 mouthwash (Paroex Oral Rinse) clindamycin HCl 300 mg capsule 300 mg PO Q8H #30 caps 05/17/22 Allergies Allergy/AdvReac Type Severity Reaction Status Date / Time pineapple Allergy Swelling Verified 05/17/22 13:50 of Lip/Tongue/Throat From CELEXA Allergy Unknown Uncoded 01/07/21 15:14 From Penicillin V Potassium Allergy Unknown Uncoded 01/07/21 15:14 Penicillin Allergy Unknown Uncoded 01/07/21 15:14 [facility] Medical History Anxiety Reflux esophagitis Wheezing Social History Smoking Status: Light tobacco smoker tobacco type: smokeless tobacco second hand exposure: No alcohol intake: current substance use type: denies use current occupational status: unemployed and disabled Travel in the last 8 weeks: None household members: none housing: apartment current occupational exposures/hazards: No caffeine: Yes ROS Obtained: Yes All systems reviewed & no additional complaints except a
[2022-05-17 13:45] VITALS: BP 136/89; PULSE 87; RESP 16; TEMP 36.8; O2SAT 99; BMI 23.8
[2022-05-17 14:33] VITALS: BP 136/89; PULSE 87; RESP 16; TEMP 36.8
== END 2022-05-17 14:33 | disposition home or self-care (01) ==
LOC: ER 13:24 → UTC 13:25
PROVIDERS: Emergency Provider Nurse Practitioner Family; PCP Physician Assistant
DX: S01.512A Laceration without foreign body of oral cavity, initial encounter (principal); K21.9 Gastro-esophageal reflux disease without esophagitis; F41.9 Anxiety disorder, unspecified; R06.2 Wheezing; Z79.899 Other long term (current) drug therapy; Z88.0 Allergy status to penicillin; Z88.8 Allergy status to other drugs, medicaments and biological substances; Z91.018 Allergy to other foods; Z23 Encounter for immunization; W26.9XXA Contact with unspecified sharp object(s), initial encounter; Y92.511 Restaurant or cafe as the place of occurrence of the external cause
CPT/HCPCS: 90471; 90715; 99213; G0463

== ENCOUNTER → 2022-08-04 13:11 | Outpatient (CLI) | payer MEDICAID, SELFPAY ==
[2022-08-04 15:21] LABS: Adenovirus,PCR Not Detected (NotDetected); Bordetella Pertussis Not Detected (NotDetected); Chlamydophila Pneumoniae, PCR Not Detected (NotDetected); Coronavirus 19, PCR Not Detected (NotDetected); Coronavirus 229E Not Detected (NotDetected); Coronavirus NL63 Not Detected (NotDetected); Coronavirus OC43 Not Detected (NotDetected); Coronovirus HKU1,PCR Not Detected (NotDetected); Human Metapneumovirus Not Detected (NotDetected); Influenza A, PCR Not Detected (NotDetected); Influenza AH1, 2009 Not Detected (NotDetected); Influenza AH1, PCR Not Detected (NotDetected); Influenza AH3,PCR Not Detected (NotDetected); Influenza B, PCR Not Detected (NotDetected); Mycoplasma Pneumoniae, PCR Not Detected (NotDetected); Parainfluenza 1, PCR Not Detected (NotDetected); Parainfluenza 2, PCR Not Detected (NotDetected); Parainfluenza 3, PCR Not Detected (NotDetected); Parainfluenza 4, PCR Not Detected (NotDetected); Respiratory Syncytial Virus Not Detected (NotDetected); Rhinovirus/Enterovirus Not Detected (NotDetected)
== END ==
PROVIDERS: PCP Nurse Practitioner Family; Visit Provider Nurse Practitioner Family
DX: R50.9 Fever, unspecified (principal); R11.2 Nausea with vomiting, unspecified; J02.9 Acute pharyngitis, unspecified; R09.81 Nasal congestion
CPT/HCPCS: 87581; 87632; 87798; C9803; U0003; U0005

== ENCOUNTER 2024-03-08 10:30 | Outpatient (CLI) | payer MEDICAID, SELFPAY ==
[2024-03-08 17:00] LABS: Basophils # 0.1 K/mm3 (0-0.2); Basophils % 0.8 % (0.1-2.0); Eosinophils # 0.3 K/mm3 (0.0-0.4); Eosinophils % 3.9 % (0.1-12.0); Hematocrit 41.9 % (37.0-47.0); Hemoglobin 13.1 g/dL (12.2-16.2); Lymphocytes # 2.3 K/mm3 (0.7-4.5); Lymphocytes % 31.4 % (10-50); Mean Corpuscular HGB Conc 31.3 g/dL (31.8-35.4); Mean Corpuscular Hemoglobin 29.6 pg (27.0-31.2); Mean Corpuscular Volume 94.4 fl (81-99); Monocytes # 0.5 K/mm3 (0.1-1.0); Monocytes % 7.5 % (1.7-9.3); Neutrophils # 4.1 K/mm3 (1.8-7.8); Neutrophils % 56.4 % (37.0-80.0); Platelet Count 360 K/mm3 (142-424); Red Blood Count 4.44 M/mm3 (4.20-5.40); White Blood Count 7.2 K/mm3 (4.8-10.8)
[2024-03-08 17:27] LABS: Alanine Aminotransferase 23 U/L (12-78); Albumin Level 4.2 g/dl (3.5-5.0); Albumin/Globulin Ratio 1.7 (1.1-1.8); Alkaline Phosphatase 75 U/L (38-126); Anion Gap 12.3 mEq/L (5-15); Aspartate Amino Transferase 27 U/L (14-36); Bilirubin,Total 0.5 mg/dl (0.2-1.3); Blood Urea Nitrogen 13 mg/dl (7-17); Calcium 9.3 mg/dl (8.4-10.2); Carbon Dioxide 25 mmol/L (22.0-30.0); Chloride 108 mmol/L (98-107); Chol/HDL Ratio 4.2 (1-3.5); Cholesterol 228 mg/dl (140-200); Estimated Glomerular Filt Rate 67 ml/min (>60); GFR (African American) 81 ML/MIN (>60); Globulin 2.5 g/dL (1.3-3.2); Glucose 78 mg/dl (74-100); HDL Cholesterol 54 mg/dl (40-60); Potassium 4.3 mmoL/L (3.5-5.1); Sodium 141 mmol/L (136-145); Total Protein,Serum 6.7 g/dl (6.3-8.2); Triglycerides 120 mg/dl (30-150); VLDL Cholesterol 24 mg/dL (0-40)
[2024-03-08 17:38] LABS: Direct LDL Cholesterol 126.35 mg/dL (100-129)
[2024-03-08 17:40] LABS: 25-OH Vitamin D, Total 23.2 ng/mL (30-100)
[2024-03-08 18:35] LABS: Thyroid Stimulating Hormone 0.88 uIU/mL (0.465-4.68)
== END 2024-03-08 23:59 | disposition home or self-care (01) ==
LOC: LAB.DROPOF 03-09 09:20
PROVIDERS: PCP Physician Assistant; Visit Provider Physician Assistant
DX: E78.2 Mixed hyperlipidemia (principal)
CPT/HCPCS: 80050; 80053; 80061; 82306; 84443; 85025

== ENCOUNTER 2024-04-16 11:00 | Outpatient (RCR) | payer MEDICAID, SELFPAY ==
--- NOTE | 2024-03-19 14:11 | HMH.PTOPEV ---
PT Outpatient Evaluation Rehab PT Outpatient Evaluation Start: 03/19/24 13:59 Freq: Status: Active Protocol: Document 03/19/24 13:59 ROMELIA (Rec: 03/19/24 14:11 ROMELIA [id number]) E-signed By Elieser Everett, PT Outpatient Therapy Subjective History Subjective History Pt reports insidious onset LBP beginning ~2 months ago. Pt reports midline LBP in origin with referred pain into right hip and down right LE to knee area. Pt reports severe LBP w/ episodes of both the right knee and low back area ' locking up and giving out sometimes.' Pt reports no imaging studies to date w/low back or right knee. New diagnosis of cancer in past 12 No months? Chief Complaint Pain,Stiff,Catches/Locks,Gives out/Unstable,Paresthesia, Weakness Symptom Type Ache,Throb,Sharp,Dull Symptoms Relieved By Rest/Positioning,Heat,Ice Symptoms Aggravated By Physical Activity,Twisting, Walking Prior Functional Limitations Lifting,Housework,Sleeping Current Functional Limitations Lifting,Housework,Sleeping Symptom Description Constant and Continuous Level of pain today (0-10) 7 Pain scale - at its best (0-10) 7 Pain scale - at its worst (0-10) 9 Lumbopelvic Eval Posture Thoracic Spine Posture Standing Position Neutral Lumbar Spine Posture Standing Position Flattened Assistive device Assistive Devices None / NA Gait Observation General Gait Pattern Observation Wide Based Gait,Decrease Weight Bear (R) Palapation tenderness bilateral lumbar spinal tenderness Yes: 4/4 paraspinal tenderness Yes: 4/4 buttock tenderness Yes: 4/4 Lumbar/Sacral Palpation Findings Tenderness,Muscle Guarding Lumbar/Sacral Palpation Overall Comment hypersensitive Accessory Movement L-spine Vertebrae Accessory Movements Central P/A Sayner that Elicit Symptoms L2 bilateral L3 bilateral L4 bilateral L5 bilateral S1 bilateral Range of Motion Lumbar Spine Active Flexion Range of 0-50 Motion (degrees) Lumbar Spine Active Extension Range of 0-10 Motion (degrees) Left Lumbar Spine Lateral Flexion Active 0-20 Range of Motion (degrees) Right Lumbar Spine Lateral Flexion 0-20 Active Range of Motion (degrees) Lumbar Spine ROM Limitations Soft Tissue Tightness,Pain Manual Muscle Test Right Knee Extension Strength Grade 3- Fair- Knee Flexion Strength Grade 3- Fair- Hip Flexion Strength Grade 3- Fair- Extensor Hallucis Longus Strength Grade 3- Fair- Ankle Dorsiflexion Strength Grade 3- Fair- Gastronemius/Soleus Strength Grade 3- Fair- Left Knee Extension Strength Grade 5 Normal Knee Flexion Strength Grade 4 Good Hip Flexion Strength Grade 4- Good- Extensor Hallucis Longus Strength Grade 4 Good Ankle Dorsiflexion Strength Grade 4 Good Gastronemius/Soleus Strength Grade 4 Good Special Tests Hip Piriformis Test Negative Left,Positive Right Sciatic Nerve Tension Test Negative Left,Positive Right Reverse Sciatic Nerve Tension Test Negative Right,Positive Left Lumbar Long [place] Distraction Test/Manual Negative Traction Oswestry Index Section 1 Pain Intensity The pain comes and goes and is severe Section 2 Personal Care (Washing,Dresing) increase the pain and I find it necessary to change my way of doing it Section 3 Lifting lifting heavy weights off the floor, but I can manage if they are Section 4 Walking I cannot walk more than 1/4 mile without increasing pain Section 5 Sitting Pain prevents me from sitting for more than one hour Section 6 Standing I cannot stand more than 1/2 hour without increasing pain Section 7 Sleeping Because of pain, my normal nights sleep is less than 2 hours sleep Section 8 Social Life Pain has restricted my social life and I do not go out often Section 9 Traveling Pain restricts me to short necessary journeys under 30 minutes Section 10 Changing Degreee of Pain My pain is gradually getting worse Score and Risk Level Oswestry Sc 34 Oswestry Risk Level Severe Disability Outpatient Therapy Assessment Impairments Problems/Impairmments Palpation Tenderness,Impaired Range of Motion,Impaired Strength,Impaired Gait Pattern ,Impaired Walking,Impaired Standing,Impaired Lifting, Impaired Household Care, Impaired Bending,Subjective C/ O Pain,Impaired Self Care/Self Management Prognosis Rehab Potential Fair Clinical Impression Consistent with Diagnosis Yes Short Term Goals Number of Weeks 4 Decreased Palpation Tenderness Yes: 1-2/4 lumbar mm Increase Range of Motion Yes: 50% of WFL LUMBAR AROM Increase Strength Yes: 3/5 RIGHT LE Increase Ability to Walk Yes: 15MIN Increase Ability to Stand Yes: 15MIN Improve Ability For Household Care Yes: 15MIN Improve Oswestry Score Yes: 20-22 Decrease Subjective C/O Pain Yes: 4-5/10 W/ABOVE ACTIVITIES Patient to be Ind w/ HEP Yes Application Development Consultant Goals Number of Weeks 6-8 Decreased Palpation Tenderness Yes: 0-1/4 LUMBAR MM Increase Range of Motion Yes: 75-80% OF WFL LUMBAR AROM Increase Strength Yes: 3+-4/5 RIGHT LE MM Improve Gait Pattern without Assistive Yes: WFL Device Increase Ability to Walk Yes: 30MIN Increase Ability to Stand Yes: 30MIN Improve Ability For Household Care Yes: 30MIN Improve Oswestry Score Yes: 10-12 Decrease Subjective C/O Pain Yes: 3/10 W/ABOVE ACTIVITIES Patient to be Ind w/ Advanced HEP Yes Outpatient Therapy Plan of Care Treatment Plan May Include Therapeutic Exercise Including Home Yes Exercise Program Manual Therapy Techniques Yes Neuromuscular Re-education Yes Therapeutic Activities to Return to Yes Previous Functional/Work Level Gait Training Yes ADL/Self Care Education Yes Mechanical Traction Yes Dry Needling Yes Thermal Modalities Yes Electrical Stimulation Yes Ultrasound/Phonophoresis Yes Eval/Re-Eval Yes Frequency Times per week 2-3 Duration Number of Weeks 6-8 Addendums This patient is a candidate for social No or vocational rehab? Patient/Guardian verbally acknowledges Yes understanding of treatment program and consents to further treatment? Patient/Guardian verbally acknowledges Yes understanding of diagnosis, prognosis and goals for treatment? Eval Complexity PT Charges 95123 - Moderate Complexity Shoulder/Elbow Eval Shoulder Objective Measurements Elbow Objective Measurements PHYSICIAN CERTIFICATION: I certify the specified therapy services for Alina Dominguez are required, authorized, and reviewed every 30 days.
== END 2024-04-16 23:59 | disposition home or self-care (01) ==
LOC: PT 11:00
PROVIDERS: Visit Provider Physician Assistant
DX: M54.50 Low back pain, unspecified (principal)
CPT/HCPCS: 97012; 97014; 97035; 97110; 97163; G0283

== ENCOUNTER 2025-03-05 09:34 | Outpatient (CLI) | payer MEDICAID, SELFPAY ==
[2025-03-05 15:57] LABS: Hematocrit 37.9 % (37.0-47.0); Hemoglobin 12.3 g/dL (12.2-16.2); Immature Granulocytes % 0.3 %; Mean Corpuscular HGB Conc 32.5 g/dL (31.8-35.4); Mean Corpuscular Hemoglobin 28.3 pg (27.0-31.2); Mean Corpuscular Volume 87.3 fl (81-99); Nucleated Red Blood Cells % 0 %; Platelet Count 329 K/mm3 (142-424); Red Blood Count 4.34 M/mm3 (4.20-5.40); Red Cell Distribution Width-SD 43.4 fL; White Blood Count 8.0 K/mm3 (4.8-10.8)
[2025-03-05 16:12] LABS: Albumin Level 4.3 g/dl (3.5-5.0); Chloride 102 mmol/L (98-107); Potassium 3.8 mmoL/L (3.5-5.1); Sodium 138 mmol/L (136-145)
[2025-03-05 16:14] LABS: Blood Urea Nitrogen 12 mg/dl (7-17); Creatinine,Serum 0.80 mg/dl (0.52-1.04); Estimated Glomerular Filt Rate 76 ml/min (>60); GFR (African American) 92 ML/MIN (>60)
[2025-03-05 16:15] LABS: Alanine Aminotransferase 20 U/L (12-78); Albumin/Globulin Ratio 1.9 (1.1-1.8); Alkaline Phosphatase 98 U/L (38-126); Anion Gap 8.8 mEq/L (5-15); Aspartate Amino Transferase 21 U/L (14-36); Bilirubin,Total 0.2 mg/dl (0.2-1.3); Calcium 9.3 mg/dl (8.4-10.2); Carbon Dioxide 31 mmol/L (22.0-30.0); Cholesterol 192 mg/dl (140-200); Globulin 2.3 g/dL (1.3-3.2); Glucose 105 mg/dl (74-100); HDL Cholesterol 47 mg/dl (40-60); Total Protein,Serum 6.6 g/dl (6.3-8.2); Triglycerides 116 mg/dl (30-150)
[2025-03-05 16:46] LABS: Thyroid Stimulating Hormone 0.63 uIU/mL (0.465-4.68)
[2025-03-05 16:57] LABS: Hepatitis C Ab Qual. W/ RFX NEGATIVE (Negative)
[2025-03-06 08:35] LABS: Hepatitis B Surface Antigen Negative (Negative)
== END 2025-03-05 23:59 | disposition home or self-care (01) ==
LOC: LAB.DROPOF 03-07 09:35
PROVIDERS: PCP Nurse Practitioner Family; Visit Provider Nurse Practitioner Family
DX: D64.9 Anemia, unspecified (principal); E78.2 Mixed hyperlipidemia; F41.9 Anxiety disorder, unspecified; Z11.59 Encounter for screening for other viral diseases
CPT/HCPCS: 80053; 80061; 84443; 85025; 86803; 87340; 87389

== ENCOUNTER 2025-03-20 08:18 | Outpatient (CLI) | payer MEDICAID, SELFPAY ==
--- NOTE | 2025-03-20 08:30 | MM_ITS ---
PROCEDURE INFORMATION: Exam: MG Bilateral Screening 3D Mammography Exam date and time: 03/20/2025 8:37 AM Age: 49 years old Clinical indication: Screening examination TECHNIQUE: Imaging protocol: Bilateral Screening tomosynthesis and 2D mammography including computer-aided detection (CAD) when performed. COMPARISON: 1. MG DXBI MM Dig mamm BI DX w/CAD 05/21/2018 1:16 PM 2. MG DXBI MM Dig mamm BI DX w/CAD 10/25/2017 1:19 PM FINDINGS: MAMMOGRAPHY: Breast composition: There are scattered areas of fibroglandular density. Mass: None. Architectural distortion: None. Calcifications: No suspicious calcifications. Asymmetric density: None. Skin thickening: None. Axillary adenopathy: None. IMPRESSION: No mammographic evidence of malignancy. Annual screening is recommended unless otherwise clinically indicated. ASSESSMENT: BI-RADS Category 1: Negative.
--- NOTE | 2025-03-20 09:00 | CA_ITS ---
APPROVED REPORT EXAM: Comprehensive 2D, Doppler, and color-flow Echocardiogram Can Piler: TR Simmons, RVS Ht: 5 ft 2 in Wt: 140lbs BSA: 1.64 BP: 120/80 mmHg Indications: CP, Smoker, SILVERIO, Murmur, MR, TR 2D Dimensions IVSd 0.93 cm LVEF (Visual) 67.40 % PWd 1.02 cm LA Volume 52.30 mL LVDd 3.88 cm LA Volume Index 31.10 mL/m2 (M/F) 16-34 LVDs 2.45 cm Left Atrium 3.19 cm M-Mode Dimensions LA Diam 2.72 cm (1.9-4.0) LVDd 4.58 cm (3.5-5.7) LVDs 2.86 cm (3.5-5.7) EF (Teich) 67.70% EPSs 0.47 cm FS 37.60% EDV (Teich) 96.30 mL TAPSE 2.19 (<1.7) ESV (Teich) 31.10 mL LV Diastology E Decel Time 180 (160-240 msec) E/A Ratio 1.41 MED A' 7.80 cm/s LAT A' 8.30 cm/s Aortic Valve MUNA Index 1.02 cm2/m2 AoV Peak Bennie. 133.0 (50-130 cm/s) AO Peak GR. 7.10 mmHg AO Mean GR. 3.50 (<5 mmHg) AO VTI 32.0 (18-25 cm) MUNA (VTI) 1.71 (2.5-4.5 cm2) Mitral Valve MV A Velocity 53.0 (40-130 cm/s) E/A Ratio 1.41 Tricuspid Valve TR P. Velocity 228.00 cm/s RAP Estimate 10.00 mmHg RVSP 30.80 mmHg Left Ventricle The left ventricle is normal size. Left ventricular systolic function is normal. The left ventricular ejection fraction is within the normal range. There is increased left ventricular wall thickness. There is normal LV segmental wall motion. The left ventricular diastolic function is normal. LVEF is 55% Right Ventricle The right ventricle is normal size. The right ventricular systolic function is normal. Atria The left atrium is mildly dilated. The right atrium is mildly dilated. There is no color Doppler evidence of interatrial shunt. Aortic Valve The aortic valve opens well. There is no hemodynamically significant aortic valvular stenosis. No aortic regurgitation is present. Mitral Valve The mitral valve is normal in structure. No evidence of mitral valve stenosis. Mild mitral regurgitation is present. Tricuspid Valve The tricuspid valve leaflets are thin and pliable. Mild tricuspid regurgitation. RVSP is 20-25 mmHg. Pulmonic Valve The pulmonary valve is grossly normal in structure. Trace pulmonic valve regurgitation is present. Great Vessels The aortic root is normal in size. IVC is normal in size and collapses >50% with inspiration. Pericardium There is no pericardial effusion. Other Information Study Quality: Fair Conclusion Normal biventricular systolic function. Mild biatrial dilation. Mild MR, mild TR. Electronically signed by : Deysi Herman MD 03/22/2025 21:19:38
== END 2025-03-20 23:59 | disposition home or self-care (01) ==
LOC: RAD 08:18
PROVIDERS: PCP Nurse Practitioner Family; Visit Provider Nurse Practitioner Family
DX: Z12.31 Encounter for screening mammogram for malignant neoplasm of breast (principal); I08.1 Rheumatic disorders of both mitral and tricuspid valves; F17.200 Nicotine dependence, unspecified, uncomplicated; R92.323 Mammographic fibroglandular density, bilateral breasts
CPT/HCPCS: 77063; 77067; 93306

== ENCOUNTER → 2025-06-03 14:20 | Outpatient (CLI) | payer MEDICAID, SELFPAY | LOC: SL 06-05 14:20 | PROVIDERS: PCP Nurse Practitioner Family; Visit Provider Nurse Practitioner Family | DX: G47.33 Obstructive sleep apnea (adult) (pediatric) (principal) | CPT/HCPCS: G0399 ==